=== PATIENT | female | born 1990 ===

== ENCOUNTER 2021-08-31 14:30 | Outpatient (CLI) | payer OTHER ==
[~2021-08-31 14:30] MED LIST: ADVIL200 MG PO; NYQUIL D COLD295 ML PO
== END 2021-08-31 15:52 | disposition home or self-care (01) ==
LOC: PRENATAL 14:30
PROVIDERS: ATTEND Obstetrics & Gynecology Maternal & Fetal Medicine
DX: O35.0XX1 Maternal care for (suspected) central nervous system malformation in fetus, fetus 1 (principal); O35.3XX1 Maternal care for (suspected) damage to fetus from viral disease in mother, fetus 1; O98.512 Other viral diseases complicating pregnancy, second trimester; Z36.89 Encounter for other specified antenatal screening; Z3A.21 21 weeks gestation of pregnancy

== ENCOUNTER 2021-12-21 07:45 | Inpatient (IN) | payer OTHER ==
[~2021-12-21] VITALS: Ht 172.7 cm; Wt 3.2 kg
[2021-12-21] MEDS ORDERED: PRENATA PO (09:54)
[2021-12-27] MEDS ORDERED: PRENATAL TABLE1 EAC1 PO (10:59)
[2021-12-31] MEDS ORDERED: IBU600 MG PO (08:58)
[2021-12-31] MEDS ORDERED: COLACE100 MG PO (08:59)
== END 2021-12-31 11:42 | disposition home or self-care (01) | DRG 785 ==
LOC: OB/GYN 12-27 07:45 → O/R 12-27 09:37 → OB/GYN 12-27 09:37
PROVIDERS: ADMIT Obstetrics & Gynecology; ATTEND Obstetrics & Gynecology
PROC: 0UB70ZZ Excision of Bilateral Fallopian Tubes, Open Approach (ICD-10-PCS; 2021-12-27)
PROC: 4A1HXCZ Monitoring of Products of Conception, Cardiac Rate, External Approach (ICD-10-PCS; 2021-12-27)
PROC: 10D00Z1 Extraction of Products of Conception, Low, Open Approach (ICD-10-PCS; principal; 2021-12-27 15:30)
DX: O34.211 Maternal care for low transverse scar from previous cesarean delivery (principal); Z30.2 Encounter for sterilization; Z3A.39 39 weeks gestation of pregnancy; Z37.0 Single live birth; Z20.822 Contact with and (suspected) exposure to COVID-19

== ENCOUNTER 2022-03-29 09:33 | Emergency (ER) | payer OTHER ==
[~2022-03-29] VITALS: Ht 172.7 cm; Wt 72.6 kg
[~2022-03-29 09:33] MED LIST changes: +COLACE100 MG PO; +IBU600 MG PO; +PRENATA PO; +PRENATAL TABLE1 EAC1 PO
== END 2022-03-29 12:23 | disposition home or self-care (01) ==
LOC: ER 09:33
DX: U07.1 COVID-19 (principal); Z91.040 Latex allergy status; Z91.013 Allergy to seafood; Z91.018 Allergy to other foods